=== PATIENT | female | born 1940 | race Caucasian/White ===

== ENCOUNTER 2018-09-30 20:25 | Inpatient (IN) ==
[2018-09-30] MEDS ORDERED: MethylPREDNISolone Sod Succinate Inj 125 MG/2 ML Vial IV.PUSH ONE (20:43)
--- NOTE | 2018-09-30 20:54 | ED ---
HPI General Chief Complaint: Chest Pain Stated Complaint: Chest Pressure/Trouble Breathing x2Days Time Seen by Provider: 09/30/18 20:35 Source: patient Mode of arrival: ambulatory Limitations: no limitations History of Present Illness MD complaint: Reports chest pain STEMI Alert: No Onset (ago): day(s) (3) Duration: constant and progressively worsening Pain location: Reports substernal Severity scale (1-10): 9 Quality: Reports tightness Pain radiation: Reports none Relieving factors: nothing Exacerbating factors: nothing Context: Reports other Associated symptoms: Reports dyspnea, fever and other (Purulent sputum production) Treatments prior to arrival chest pain: Reports other (Tylenol, bronchodilator and 1 dose of Augmentin which she took today) Related Data Home Medications Medication Instructions Recorded Confirmed acetaminophen [Tylenol] 325 mg PO Q6H PRN 09/30/18 09/30/18 amoxicillin-pot clavulanate 1 tab PO BID 09/30/18 09/30/18 budesonide-formoterol [Symbicort] 2 puff INHALATION BID 09/30/18 09/30/18 chlorthalidone 50 mg PO DAILY 09/30/18 09/30/18 levothyroxine [Synthroid] 112 mcg PO DAILY 09/30/18 09/30/18 sennosides [Senokot] 8.6 mg PO BID PRN 09/30/18 09/30/18 terbutaline 0.5 mg INHALATION Q4-6H PRN 09/30/18 09/30/18 Allergies Allergy/AdvReac Type Severity Reaction Status Date / Time aspirin Allergy Difficulty Verified 09/30/18 21:10 Breathing morphine Allergy Anaphylaxis Verified 09/30/18 21:10 petrolatum,white Allergy Difficulty Verified 09/30/18 21:10 [From Petroleum Jelly] Breathing Sulfa (Sulfonamide Allergy Rash Verified 09/30/18 20:43 Antibiotics) Review of Systems ROS: all other systems reviewed are negative [facility] Medical History Medical History Asthma (Acute) History of intestinal obstruction (Acute) Hx of thyroid cancer (Acute) Low blood pressure (Acute) Surgical History Surgical History Hx of appendectomy (Acute) Hx of tonsillectomy (Acute) Social History Social History Substance History: No History of Abuse Second Hand Smoke Exposure: No Smoking Status: Never smoker How Often Do You Have a Drink Containing Alcohol: Never Recent Travel in [facility] within the Last 8 Weeks: No Recent Out of Country Travel within the Last 8 Weeks: Yes Exam Const General: cooperative, healthy appearing and other (Obvious difficulty breathing) Orientation: alert, awake and oriented x3 HENMT Head: normal to inspection, normocephalic and atraumatic Eyes General: appearance normal, both eyes and all related structures Conjunctivae: conjunctivae normal Sclera: sclerae normal EOM: EOM intact bilaterally Neck Neck: normal visual inspection and full ROM Chest Chest: normal inspection of the chest Resp Effort & Inspection: cough, labored and prolonged expiratory phase Auscultation: wheezes Cardio Rate: regular rate Rhythm: regular rhythm Heart Sounds: S1 normal and S2 normal GI Inspection: normal to inspection Palpation: soft Back/Spine/Pelvis Cervical Spine: cervical ROM normal Thoracic/Lumbar Spine: thoraco-lumbar ROM normal Skin General: no rashes or lesions noted, turgor normal and dry skin Neuro General: alert, awake, oriented x3, moves all extremities and CN's II-XI intact bilaterally Extrem General: normal to inspection, full ROM and no pedal edema Psych Appearance: grossly normal Mental Status: mental status grossly normal Speech and Movement: speech and movement normal Mood: congruent mood Affect: normal affect Attitude: cooperative Thought Process: normal Thought Content: normal Judgment: judgment good Course Initial Documented Vital Signs Temperature 98.3 F 09/30/18 20:44 Pulse Rate 80 09/30/18 20:44 Respiratory Rate 18 09/30/18 20:44 Blood Pressure 138/76 09/30/18 20:44 Pulse Oximetry 97 09/30/18 20:44 Last Documented Vital Signs Temperature 98.3 F 09/30/18 20:44 Pulse Rate 101 H 09/30/18 22:18 Respiratory Rate 18 09/30/18 22:18 Blood Pressure 129/64 09/30/18 22:18 Pulse Oximetry 97 09/30/18 22:18 Medical Decision Making MDM Narrative Medical decision making narrative: This is a patient from [place] who lives here in the winter who has a history of asthma who presents to us with increasing dyspnea and chest discomfort over the last 3 days. She has had a fever and purulent sputum production. Her physician in [place] gives her a prescription for Augmentin to bring with her when she comes to the [facility]. She started the Augmentin this evening. She has also used her usual MDI. On exam, she is obviously having some difficulty breathing. Her lungs are tight with diffuse expiratory wheezing. I suspect that her symptoms are respiratory rather than cardiac related. Following 3 nebulizer treatments, her lungs are clear. However, the patient reports continued significant difficulty breathing. She also continues to have some chest discomfort. Admission may be difficult since she is [place]. I have ordered the remaining troponins and EKGs. Medical Screen Exam Complete: Yes Emergency Medical Condition: Yes Differential Diagnosis Differential Diagnosis: Differential diagnosis of dyspnea includes but is not limited to congestive heart failure, pneumonia, wheezing, pneumothorax, pulmonary embolism Lab Data Lab results reviewed: Yes I reviewed the patient's lab results. Result diagrams: 09/30/18 21:18 09/30/18 21:18 Lab Results 09/30/18 09/30/18 Range/Units 21:18 21:18 CBC w Diff Slide review pending WBC 7.2 (4.0-11.0) th/mm3 RBC 4.06 (4.00-5.30) mil/mm3 Hgb 12.5 (11.6-15.3) gm/dL Hct 37.1 (35.0-46.0) % MCV 91.2 (80.0-100.0) fL MCH 30.7 (27.0-34.0) pg MCHC 33.7 (32.0-36.0) % RDW 12.8 (11.6-17.2) % Plt Count 226 (150-450) th/mm3 MPV 8.7 (7.0-11.0) fL WBC Differential Manual diff final Seg Neuts % (Manual) 80 H (16-70) % Lymphocytes % (Manual) 17 (9-44) % Monocytes % (Manual) 3 (0-8) % Abs Neuts (Manual) 5.8 (1.8-7.7) th/mm3 Differential Comment . Platelet Estimate Normal (Normal) Platelet Morphology Normal (Normal) RBC Morphology Normal (Normal) Sodium 129 L (136-145) meq/L Potassium 3.1 L (3.5-5.1) meq/L Chloride 92 L (98-107) meq/L Carbon Dioxide 26.3 (21.0-32.0) meq/L Anion Gap 11 (5-15) meq/L BUN 10 (7-18) mg/dL Creatinine 0.58 (0.50-1.00) mg/dL Estimated GFR Greater than 89 (>89) mL/min Random Glucose 109 H (74-106) mg/dL Calcium 8.8 (8.5-10.1) mg/dL Total Bilirubin 0.5 (0.2-1.0) mg/dL AST 19 (15-37) U/L ALT 15 (10-53) U/L Alkaline Phosphatase 57 (45-117) U/L Troponin I Less than 0.02 L (0.02-0.05) ng/mL Total Protein 6.9 (6.4-8.2) g/dL Albumin 3.5 (3.4-5.0) g/dL Imaging Data Radiologist's impression: Chest X-Ray 09/30/18 20:43 CONCLUSION: 1. Negative portable chest. ECG Data EKG Prior to Arrival: No Attestation: I personally reviewed and interpreted this ECG as follows: (EKG shows a sinus rhythm with no acute STT wave changes.) Discharge Plan Discharge Disposition Patient Disposition: ED Admit(ED Internal Use Only) Discharge Order Discharge Orders: ED Use Only Admit Order (Routine); Ordered 09/30/18 Ordered By: Marguerite Mathis Discharge Details Diagnosis: Atypical chest pain, Asthma with acute exacerbation, Hyponatremia, Hypokalemia Physicians Team ED Provider: Marguerite Mathis Primary Care Provider: Primary Care JulianiJocelyn Rxs /Orders / Referrals /Forms Prescriptions: No Action sennosides [Senokot] 8.6 mg Tablet 8.6 mg PO BID PRN (Reason: Constipation) RF: 0 acetaminophen [Tylenol] 325 mg Tablet 325 mg PO Q6H PRN (Reason: Acute Pain) RF: 0 chlorthalidone 50 mg Tablet 50 mg PO DAILY RF: 0 levothyroxine [Synthroid] 112 mcg Tablet 112 mcg PO DAILY RF: 0 amoxicillin-pot clavulanate 875-125 mg Tablet 1 tab PO BID RF: 0 terbutaline 1 mg/mL Solution 0.5 mg INHALATION Q4-6H PRN (Reason: Bronchodilation) RF: 0 budesonide-formoterol [Symbicort] 160-4.5 mcg/actuation Hfa Aerosol Inhaler 2 puff INHALATION BID RF: 0 Discharge Instructions Patient Printed Instructions: Chest Pain (ED) Status ED Status: Pending Admission
--- NOTE | 2018-09-30 20:58 | XR ---
EXAM DATE: 09/30/2018 8:55 PM EST AGE/SEX: 78 years / Female INDICATIONS: Cough, chest pressure, vomiting and shortness of breath. CLINICAL DATA: This is the patient's initial encounter. Patient reports that signs and symptoms have been present for 3 days and indicates a pain score of 2/10. MEDICAL/SURGICAL HISTORY: None. . Thyroid surgery. COMPARISON: No prior exams available for comparison. FINDINGS: No significant focal pleural or parenchymal opacities. The cardiomediastinal contours are unremarkabl e. Osseous structures are intact. CONCLUSION: 1. Negative portable chest. Electronically signed by: Miguelangel Irving MD Board Certified Radiologist 09/30/2018 8:57 PM [facility] T
[2018-09-30 21:33] LABS: Hematocrit 37.1 % (35.0-46.0); Hemoglobin 12.5 gm/dL (11.6-15.3); Mean Corpuscular HGB Conc 33.7 % (32.0-36.0); Mean Corpuscular Hemoglobin 30.7 pg (27.0-34.0); Mean Corpuscular Volume 91.2 fL (80.0-100.0); Mean Platelet Volume 8.7 fL (7.0-11.0); Platelet Count 226 th/mm3 (150-450); Red Blood Count 4.06 mil/mm3 (4.00-5.30); Red Cell Distribution Width 12.8 % (11.6-17.2); White Blood Count 7.2 th/mm3 (4.0-11.0)
[2018-09-30 21:42] LABS: Chloride 92 meq/L (98-107); Potassium 3.1 meq/L (3.5-5.1); Sodium 129 meq/L (136-145)
[2018-09-30 21:45] LABS: Calcium 8.8 mg/dL (8.5-10.1)
[2018-09-30 21:46] LABS: Albumin 3.5 g/dL (3.4-5.0); Anion Gap 11 meq/L (5-15); Blood Urea Nitrogen 10 mg/dL (7-18); Carbon Dioxide 26.3 meq/L (21.0-32.0); Glucose,Random 109 mg/dL (74-106)
[2018-09-30 21:49] LABS: Alanine Aminotransferase 15 U/L (10-53); Aspartate Aminotransferase 19 U/L (15-37); Glomerular Filtration Rate Greater Than 89 mL/min (>89)
[2018-09-30 21:50] LABS: Total Protein 6.9 g/dL (6.4-8.2)
[2018-09-30 21:52] LABS: Alkaline Phosphatase 57 U/L (45-117)
[2018-09-30 21:53] LABS: Lymphocytes 17 % (9-44); Monocytes 3 % (0-8); Platelet Estimate Normal (Normal); Platelet Morphology Normal (Normal); RBC Morphology Normal (Normal)
[2018-09-30] MEDS ORDERED: Acetaminophen 325 MG Tablet PO PRN (22:58)
[2018-09-30] MEDS ORDERED: Bisacodyl 10 MG Supp RECTAL PRN (22:58)
[2018-09-30] MEDS: Heparin - SQ 10,000 UNITS/ML Vial SQ SCH (23:38)
[2018-09-30] MEDS: Sod Chloride 0.9% Inj 1,000 ML IV.CONT SCH (23:39)
[2018-10-01 04:02] LABS: Creatine Kinase 103 U/L (26-192)
[2018-10-01 06:45] LABS: Baso % (Auto) 0.7 % (0.0-2.0); Eos % (Auto) 0.1 % (0.0-4.0); Hematocrit 35.5 % (35.0-46.0); Hemoglobin 11.9 gm/dL (11.6-15.3); Lymph # (Auto) 0.4 th/mm3 (1.0-4.8); Lymph % (Auto) 6.2 % (9.0-44.0); Mean Corpuscular HGB Conc 33.7 % (32.0-36.0); Mean Corpuscular Hemoglobin 31.2 pg (27.0-34.0); Mean Corpuscular Volume 92.7 fL (80.0-100.0); Mean Platelet Volume 9.4 fL (7.0-11.0); Mono % (Auto) 0.5 % (0.0-8.0); Neut # (Auto) 5.7 th/mm3 (1.8-7.7); Neut % (Auto) 92.5 % (16.0-70.0); Platelet Count 212 th/mm3 (150-450); Red Blood Count 3.83 mil/mm3 (4.00-5.30); Red Cell Distribution Width 13.3 % (11.6-17.2); White Blood Count 6.1 th/mm3 (4.0-11.0)
[2018-10-01 06:56] LABS: Chloride 96 meq/L (98-107); Potassium 3.3 meq/L (3.5-5.1); Sodium 133 meq/L (136-145)
[2018-10-01 07:00] LABS: Anion Gap 11 meq/L (5-15); Blood Urea Nitrogen 9 mg/dL (7-18); Calcium 8.2 mg/dL (8.5-10.1); Glucose,Random 170 mg/dL (74-106)
[2018-10-01 07:04] LABS: Glomerular Filtration Rate Greater Than 89 mL/min (>89)
[2018-10-01 07:18] LABS: Creatine Kinase 73 U/L (26-192)
[2018-10-01] MEDS: Senna/Docusate Sodium 8.6/50 MG Tablet PO SCH ×2 (08:47→21:04)
[2018-10-01] MEDS: Levothyroxine 112 MCG Tablet PO SCH (08:47)
[2018-10-01] MEDS ORDERED: CHLORTHALIDONE 50 MG PO SCH (09:00)
[2018-10-01] MEDS: Sod Chloride 0.9% Inj 1,000 ML IV.CONT SCH ×2 (09:45→18:30)
[2018-10-01] MEDS: MethylPREDNISolone Sod Succinate Inj 40 MG/ML Vial IV.PUSH SCH ×3 (09:46→22:20)
[2018-10-01] MEDS: Budesonide-Formoterol 160/4.5 MCG 6 GM Inhaler INH SCH ×3 (09:46→21:06)
[2018-10-01] MEDS: Heparin - SQ 10,000 UNITS/ML Vial SQ SCH ×2 (09:59→22:20)
--- NOTE | 2018-10-01 10:40 | P.HP ---
History of Present Illness Primary Care Physician: No Primary Care Physician Chief Complaint: Worsening shortness of breath and chest pain History of Present Illness: This is a 78-year-old female patient with a known medical history of hypothyroidism who presented to the ED with worsening shortness of breath as well as associated chest pain times 2 days. Patient is from [place], states she arrived here late August and since that time actually went on a cruise on September 20. She states she got home from the cruise and felt overall fatigued and tired, she developed a productive cough with yellow colored sputum last evening and subjective fevers. Patient did take described Augmentin last evening. Also complains that she has some associated shortness of breath with chest pain. Chest posterior is midsternal, is pressure-like and occurs with the coughing. Patient denies any coronary artery disease history, states that she underwent a cardiac stress test in the . At that time she was advised to control her asthma so that there will be no effect on her heart. 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 Patient denies any chills, abdominal pain, nausea, vomiting, diarrhea or dysuria. Patient reassessed, she is extremely sensitive to perfumes or lotions, states that possibly being on the cruise exacerbated her asthma. She does feel improved overnight. Continue on antibiotics, IV steroids. - Diagnosis (1) Atypical chest pain (2) Asthma with acute exacerbation Review of Systems All other systems reviewed negative except as stated in HPI PMFSH - History History Provided By: Patient - Medical History Medical History: Medical History (Last Reviewed 10/01/18 @ 11:02 by Shanelle Sorto) Asthma History of intestinal obstruction Hx of thyroid cancer Low blood pressure - Surgical History Surgical History: Surgical History (Last Reviewed 10/01/18 @ 10:33 by Shanelle Sorto) Hx of appendectomy Hx of tonsillectomy - Family History Family History: Family History (Last Updated 10/01/18 @ 10:34 by Shanelle Sorto) Other Family history non-contributory - Social History I have reviewed the patient's Social History: Yes - Tobacco History Second Hand Smoke Exposure: No Tobacco Use In Past 30 Days: No Smoking Status: Never smoker - Alcohol History How Often Do You Have a Drink Containing Alcohol: Monthly or less - Substance Use History Substance History: No History of Abuse - Travel History Recent Travel in the [place] Within the Last 8 Weeks: No Recent Travel Out of the Country Within the Last 8 Weeks: Yes - Immunization History Tetanus Immunization: Unsure Medications and Allergies Active Medications: Active Medications Acetaminophen (Tylenol) 650 mg PO Q4H PRN PRN Reason: Temp > 100.4 Last Admin: 10/01/18 08:47 Dose: 650 mg Al Hydroxide/Mg Hydroxide (Milk Of Magnesia Liq) 30 ml PO Q12H PRN PRN Reason: Mild Constipation Albuterol (Albuterol Neb (Prn)) 2.5 mg NEB Q2HR NEB PRN PRN Reason: sob/wheezing Bisacodyl (Dulcolax Supp) 10 mg RECTAL DAILY PRN PRN Reason: SEVERE CONSITIPATION Budesonide/Formoterol Fumarate (Symbicort 160/4.5 Mcg Inh) 2 puff INH BID [facility] Last Admin: 10/01/18 10:02 Dose: Not Given Heparin Sodium (Porcine) (Heparin Inj) 5,000 units SQ Q12H [facility] Last Admin: 10/01/18 09:59 Dose: 5,000 units Sodium Chloride (Ns Inj) 1,000 mls @ 100 mls/hr IV.CONT .Q10H [facility] Last Admin: 10/01/18 09:45 Dose: 100 mls/hr Lactulose (Lactulose Liq) 30 ml PO DAILY PRN PRN Reason: SEVERE CONSITIPATION Levothyroxine Sodium (Synthroid) 112 mcg PO DAILY@0600 [facility] Last Admin: 10/01/18 08:47 Dose: 112 mcg Methylprednisolone Sodium Succinate (Solumedrol Inj) 40 mg IV.PUSH Q8HR [facility] Last Admin: 10/01/18 09:46 Dose: 40 mg Ondansetron HCl (Zofran Inj) 4 mg IV.PUSH Q6H PRN PRN Reason: NAUSEA OR VOMITING Last Admin: 10/01/18 08:47 Dose: 4 mg Patient Own Med- (Chlorthalidone 50 Mg) 0 each PO DAILY [facility] Senna/Docusate Sodium (Usha-Colace) 1 tab PO BID [facility] Last Admin: 10/01/18 08:47 Dose: 1 tab Sennosides (Senokot) 17.2 mg PO Q12H PRN PRN Reason: Moderate Constipation Sodium Chloride (Ns Flush) 2 ml IV.FLUSH BID [facility] Last Admin: 10/01/18 09:44 Dose: Not Given Sodium Chloride (Ns Flush) 2 ml IV.FLUSH PRN PRN PRN Reason: FLUSH AFTER USING IV ACCESS Allergies Allergy/AdvReac Type Severity Reaction Status Date / Time aspirin Allergy Difficulty Verified 09/30/18 21:10 Breathing morphine Allergy Anaphylaxis Verified 09/30/18 21:10 petrolatum,white Allergy Difficulty Verified 09/30/18 21:10 [From Petroleum Jelly] Breathing Sulfa (Sulfonamide Allergy Rash Verified 09/30/18 20:43 Antibiotics) Home Medications Medication Instructions Recorded Confirmed Type acetaminophen [Tylenol] 325 mg PO Q6H PRN 09/30/18 09/30/18 History amoxicillin-pot clavulanate 1 tab PO BID 09/30/18 09/30/18 History budesonide-formoterol [Symbicort] 2 puff INHALATION BID 09/30/18 09/30/18 History chlorthalidone 50 mg PO DAILY 09/30/18 09/30/18 History levothyroxine [Synthroid] 112 mcg PO DAILY 09/30/18 09/30/18 History sennosides [Senokot] 8.6 mg PO BID PRN 09/30/18 09/30/18 History terbutaline 0.5 mg INHALATION Q4-6H PRN 09/30/18 09/30/18 History Exam Vital signs: Vital Signs 09/30/18 20:44 09/30/18 20:48 09/30/18 21:20 Temperature 98.3 F Pulse Rate 80 80 76 Respiratory Rate 18 20 Blood Pressure 138/76 Pulse Oximetry 97 97 97 09/30/18 21:37 09/30/18 21:50 09/30/18 22:18 Temperature Pulse Rate 81 84 101 H Respiratory Rate 20 20 18 Blood Pressure 129/64 Pulse Oximetry 97 09/30/18 23:34 10/01/18 00:00 10/01/18 00:38 Temperature 96.1 F L Pulse Rate 82 85 Respiratory Rate 16 20 18 Blood Pressure 100/55 L 101/53 L Pulse Oximetry 90 L 93 L 10/01/18 04:00 10/01/18 07:30 10/01/18 08:00 Temperature 96.9 F L 96.8 F L Pulse Rate 82 20 L Respiratory Rate 20 20 Blood Pressure 117/59 L 127/59 L Pulse Oximetry 90 L 93 L 92 L Intake & Output 09/30/18 10/01/18 10/01/18 18:59 06:59 18:59 Intake Total 220 / 220 780 / 780 Balance 220 / 220 780 / 780 Weight 69.7 kg Intake: IV 220 / 220 780 / 780 NS Inj 1,000 ML @ 100 mls/hr IV 220 / 220 780 / 780 .CONT .Q10H [facility] Rx#:[id number] Oral 0 / 0 Other: # Voids 1 Weight On Admission 69.7 kg Narrative: GENERAL: Well-developed, well-nourished patient in [facility]. SKIN: Warm and dry. No rash. HEAD: Normocephalic. Atraumatic. EYES: Pupils equal and round. No scleral icterus. No injection or drainage. ENT: No nasal bleeding or discharge. Mucous membranes pink and moist. NECK: Supple. Trachea midline. CARDIOVASCULAR: Regular rate and rhythm. S1, S2 noted. No murmur appreciated. RESPIRATORY: No accessory muscle use. Expiratory wheezing. Breath sounds equal bilaterally. GASTROINTESTINAL: Abdomen soft, non-tender, nondistended. Normoactive bowel sounds x4. MUSCULOSKELETAL: No obvious deformities. Extremities without clubbing, cyanosis , or edema. NEUROLOGICAL: Awake and alert. No obvious cranial nerve deficits. Motor grossly within normal limits. 5/5 muscle strength in bilateral upper and lower extremities. Normal speech. PSYCHIATRIC: Appropriate mood and affect; insight and judgment normal. Results - Labs CBC & Chem 7: 10/01/18 05:45 10/01/18 05:45 Labs: Laboratory Results - last 24 hr 09/30/18 09/30/18 10/01/18 21:18 21:18 00:04 CBC w Diff Slide review pending WBC 7.2 RBC 4.06 Hgb 12.5 Hct 37.1 MCV 91.2 MCH 30.7 MCHC 33.7 RDW 12.8 Plt Count 226 MPV 8.7 Neut % (Auto) Lymph % (Auto) Divide % (Auto) Eos % (Auto) Baso % (Auto) Neut # (Auto) Lymph # (Auto) Divide # (Auto) Eos # (Auto) Baso # (Auto) WBC Differential Manual diff final Seg Neuts % (Manual) 80 H Lymphocytes % (Manual) 17 Monocytes % (Manual) 3 Abs Neuts (Manual) 5.8 Differential Comment . Platelet Estimate Normal Platelet Morphology Normal RBC Morphology Normal Sodium 129 L Potassium 3.1 L Chloride 92 L Carbon Dioxide 26.3 Anion Gap 11 BUN 10 Creatinine 0.58 Estimated GFR Greater than 89 Random Glucose 109 H Calcium 8.8 Total Bilirubin 0.5 AST 19 ALT 15 Alkaline Phosphatase 57 Total Creatine Kinase Troponin I Less than 0.02 L Less than 0.02 L Total Protein 6.9 Albumin 3.5 10/01/18 10/01/18 10/01/18 03:30 05:45 05:45 CBC w Diff Auto diff final WBC 6.1 RBC 3.83 L Hgb 11.9 Hct 35.5 MCV 92.7 MCH 31.2 MCHC 33.7 RDW 13.3 Plt Count 212 MPV 9.4 Neut % (Auto) 92.5 H Lymph % (Auto) 6.2 L Divide % (Auto) 0.5 Eos % (Auto) 0.1 Baso % (Auto) 0.7 Neut # (Auto) 5.7 Lymph # (Auto) 0.4 L Divide # (Auto) 0.0 Eos # (Auto) 0.0 Baso # (Auto) 0.0 WBC Differential . Seg Neuts % (Manual) Lymphocytes % (Manual) Monocytes % (Manual) Abs Neuts (Manual) Differential Comment . Platelet Estimate Platelet Morphology RBC Morphology Sodium 133 L Potassium 3.3 L Chloride 96 L Carbon Dioxide 26.0 Anion Gap 11 BUN 9 Creatinine 0.63 Estimated GFR Greater than 89 Random Glucose 170 H Calcium 8.2 L Total Bilirubin AST ALT Alkaline Phosphatase Total Creatine Kinase 103 73 Troponin I Less than 0.02 L Less than 0.02 L Total Protein Albumin - Imaging Impressions Chest X-Ray 09/30/18 20:43 CONCLUSION: 1. Negative portable chest. Caprini VTE Risk Assessment Caprini VTE Risk Assessment: Moderate/High Risk (score >= 2) Caprini Risk Assessment Model: Point Value = 1 Point Value = 2 Point Value = 3 Point Value = 5 Age 41-60 Minor surgery BMI > 25 kg/m2 Swollen legs Varicose veins or History of unexplained or recurrent spontaneous Oral contraceptives or hormone replacement Sepsis (< 1 month) Serious lung disease, including pneumonia (< 1 month) Abnormal pulmonary function Acute myocardial infarction Congestive heart failure (< 1 month) History of inflammatory bowel disease Medical patient at bed rest Age 61-74 Arthroscopic surgery Major open surgery (> 45 min) Laparoscopic surgery (> 45 min) Malignancy Confined to bed (> 72 hours) Immobilizing plaster cast Central venous access Age >= 75 History of VTE Family history of VTE Factor V Leiden Prothrombin [id number] Lupus anticoagulant Anticardiolipin antibodies Elevated serum homocysteine Heparin-induced thrombocytopenia Other congenital or acquired thrombophilia Stroke (< 1 month) Elective arthroplasty Hip, pelvis, or leg fracture Acute spinal cord injury (< 1 month) Prophylaxis Regimen: Total Risk Factor Score Risk Level Prophylaxis Regimen 0-1 Low Early ambulation 2 Moderate Order ONE of the following: *Sequential Compression Device (SCD) *Heparin 5000 units SQ BID 3-4 Higher Order ONE of the following medications: *Heparin 5000 units SQ TID *Enoxaparin/Lovenox 40 mg SQ daily (WT < 150 kg, CrCl > 30 mL/min) *Enoxaparin/Lovenox 30 mg SQ daily (WT < 150 kg, CrCl > 10-29 mL/min) *Enoxaparin/Lovenox 30 mg SQ BID (WT < 150 kg, CrCl > 30 mL/min) AND/OR *Sequential Compression Device (SCD) 5 or more Highest Order ONE of the following medications: *Heparin 5000 units SQ TID (Preferred with Epidurals) *Enoxaparin/Lovenox 40 mg SQ daily (WT < 150 kg, CrCl > 30 mL/min) *Enoxaparin/Lovenox 30 mg SQ daily (WT < 150 kg, CrCl > 10-29 mL/min) *Enoxaparin/Lovenox 30 mg SQ BID (WT < 150 kg, CrCl > 30 mL/min) AND *Sequential Compression Device (SCD) Assessment and Plan - Assessment (1) Atypical chest pain Code(s): R07.89 - Other chest pain Status: Acute (2) Asthma with acute exacerbation Code(s): J45.901 - Unspecified asthma with (acute) exacerbation Status: Acute - Plan This is a 78-year-old female patient who presented to the ED with: Asthma and acute exacerbation Chest pain, atypical suspect secondary to above -Patient presents with a 2-day complaint of worsening shortness of breath along with chest pain. -Serial EKGs and serial troponins have been ordered for ruling out ACS purposes. Serial troponins flat. -EKG reviewed showing sinus rhythm without any ST changes. Will continue cardiac telemetry. Monitor for any arrhythmias. -ACS ruled out with troponins and EKGs. Will possibly perform a cardiac lexiscan in am if resp status improved. Monitor. -Chest x-ray reviewed showing no acute findings. -Continue on IV steroids. -Symbicort for wheezing. Continue duo nebs. -Continue Augmentin. -Supplemental O2 as needed, to keep sats >92%. -Supportive care. Acute hyponatremia -Sodium 129 on presentation. Improved to 133. -Monitor labs in a.m. Hypokalemia -Potassium 3.1 on presentation. Improved to 3.3. -Repletion as ordered. -Monitor BMP. Hypertension, chronic: Will continue home blood pressure medications. Monitor blood pressure trends. DVT prophylaxis: SCDs. Heparin. (2) Asthma with acute exacerbation Qualifiers: Asthma severity: moderate Asthma persistence: unspecified Qualified Code(s) : J45.901 - Unspecified asthma with (acute) exacerbation
--- NOTE | 2018-10-01 11:01 | P.PNIM ---
Physical Exam Vital signs: Vital Signs 09/30/18 20:44 09/30/18 20:48 09/30/18 21:20 Temperature 98.3 F Pulse Rate 80 80 76 Respiratory Rate 18 20 Blood Pressure 138/76 Pulse Oximetry 97 97 97 09/30/18 21:37 09/30/18 21:50 09/30/18 22:18 Temperature Pulse Rate 81 84 101 H Respiratory Rate 20 20 18 Blood Pressure 129/64 Pulse Oximetry 97 09/30/18 23:34 10/01/18 00:00 10/01/18 00:38 Temperature 96.1 F L Pulse Rate 82 85 Respiratory Rate 16 20 18 Blood Pressure 100/55 L 101/53 L Pulse Oximetry 90 L 93 L 10/01/18 04:00 10/01/18 07:30 10/01/18 08:00 Temperature 96.9 F L 96.8 F L Pulse Rate 82 20 L Respiratory Rate 20 20 Blood Pressure 117/59 L 127/59 L Pulse Oximetry 90 L 93 L 92 L Intake & Output 09/30/18 10/01/18 10/01/18 18:59 06:59 18:59 Intake Total 220 / 220 780 / 780 Balance 220 / 220 780 / 780 Weight 69.7 kg Intake: IV 220 / 220 780 / 780 NS Inj 1,000 ML @ 100 mls/hr IV 220 / 220 780 / 780 .CONT .Q10H QING Rx#:[id number] Oral 0 / 0 Other: # Voids 1 Weight On Admission 69.7 kg Narrative: GENERAL: Well-developed, well-nourished patient in [facility]. SKIN: Warm and dry. No rash. HEAD: Normocephalic. Atraumatic. EYES: Pupils equal and round. No scleral icterus. No injection or drainage. ENT: No nasal bleeding or discharge. Mucous membranes pink and moist. NECK: Supple. Trachea midline. CARDIOVASCULAR: Regular rate and rhythm. S1, S2 noted. No murmur appreciated. RESPIRATORY: No accessory muscle use. Expiratory wheezing throughout. Breath sounds equal bilaterally. GASTROINTESTINAL: Abdomen soft, non-tender, nondistended. Normoactive bowel sounds x4. MUSCULOSKELETAL: No obvious deformities. Extremities without clubbing, cyanosis , or edema. NEUROLOGICAL: Awake and alert. No obvious cranial nerve deficits. Motor grossly within normal limits. 5/5 muscle strength in bilateral upper and lower extremities. Normal speech. PSYCHIATRIC: Appropriate mood and affect; insight and judgment normal. Results - Labs CBC & Chem 7: 10/01/18 05:45 10/01/18 05:45 Laboratory Results - last 24 hr 09/30/18 09/30/18 10/01/18 21:18 21:18 00:04 CBC w Diff Slide review pending WBC 7.2 RBC 4.06 Hgb 12.5 Hct 37.1 MCV 91.2 MCH 30.7 MCHC 33.7 RDW 12.8 Plt Count 226 MPV 8.7 Neut % (Auto) Lymph % (Auto) Henry % (Auto) Eos % (Auto) Baso % (Auto) Neut # (Auto) Lymph # (Auto) Henry # (Auto) Eos # (Auto) Baso # (Auto) WBC Differential Manual diff final Seg Neuts % (Manual) 80 H Lymphocytes % (Manual) 17 Monocytes % (Manual) 3 Abs Neuts (Manual) 5.8 Differential Comment . Platelet Estimate Normal Platelet Morphology Normal RBC Morphology Normal Sodium 129 L Potassium 3.1 L Chloride 92 L Carbon Dioxide 26.3 Anion Gap 11 BUN 10 Creatinine 0.58 Estimated GFR Greater than 89 Random Glucose 109 H Calcium 8.8 Total Bilirubin 0.5 AST 19 ALT 15 Alkaline Phosphatase 57 Total Creatine Kinase Troponin I Less than 0.02 L Less than 0.02 L Total Protein 6.9 Albumin 3.5 10/01/18 10/01/18 10/01/18 03:30 05:45 05:45 CBC w Diff Auto diff final WBC 6.1 RBC 3.83 L Hgb 11.9 Hct 35.5 MCV 92.7 MCH 31.2 MCHC 33.7 RDW 13.3 Plt Count 212 MPV 9.4 Neut % (Auto) 92.5 H Lymph % (Auto) 6.2 L Henry % (Auto) 0.5 Eos % (Auto) 0.1 Baso % (Auto) 0.7 Neut # (Auto) 5.7 Lymph # (Auto) 0.4 L Henry # (Auto) 0.0 Eos # (Auto) 0.0 Baso # (Auto) 0.0 WBC Differential . Seg Neuts % (Manual) Lymphocytes % (Manual) Monocytes % (Manual) Abs Neuts (Manual) Differential Comment . Platelet Estimate Platelet Morphology RBC Morphology Sodium 133 L Potassium 3.3 L Chloride 96 L Carbon Dioxide 26.0 Anion Gap 11 BUN 9 Creatinine 0.63 Estimated GFR Greater than 89 Random Glucose 170 H Calcium 8.2 L Total Bilirubin AST ALT Alkaline Phosphatase Total Creatine Kinase 103 73 Troponin I Less than 0.02 L Less than 0.02 L Total Protein Albumin - Imaging Impressions Chest X-Ray 09/30/18 20:43 CONCLUSION: 1. Negative portable chest. Assessment and Plan - Assessment (1) Atypical chest pain Code(s): R07.89 - Other chest pain Status: Acute (2) Asthma with acute exacerbation Code(s): J45.901 - Unspecified asthma with (acute) exacerbation Status: Acute - Plan Hypothyroidism who presented to the ED with: Asthma and acute exacerbation Chest pain, atypical suspect secondary to above -Patient presents with a 2-day complaint of worsening shortness of breath along with chest pain. -Serial EKGs and serial troponins have been ordered for ruling out ACS purposes. Serial troponins flat. -EKG reviewed showing sinus rhythm without any ST changes. Will continue cardiac telemetry. Monitor for any arrhythmias. -ACS ruled out with troponins and EKGs. Will possibly perform a cardiac lexiscan in am if resp status improved. Monitor. -Chest x-ray reviewed showing no acute findings. -Continue on IV steroids. -Symbicort for wheezing. Continue duo nebs. -Continue Augmentin. -Supplemental O2 as needed, to keep sats >92%. -Supportive care. Acute hyponatremia -Sodium 129 on presentation. Improved to 133. -Monitor labs in a.m. Hypokalemia -Potassium 3.1 on presentation. Improved to 3.3. -Repletion as ordered. -Monitor BMP. DVT prophylaxis: SCDs. Heparin. (2) Asthma with acute exacerbation Qualifiers: Asthma severity: moderate Asthma persistence: unspecified Qualified Code(s) : J45.901 - Unspecified asthma with (acute) exacerbation
[2018-10-01] MEDS ORDERED: TERBUTALINE SULFATE INH PRN (13:42)
--- NOTE | 2018-10-01 18:22 | ECG ---
Date Performed: 10/01/2018 Time Performed: 02:54:58 PTAGE: 78 years EKG: Sinus rhythm ST DEVIATION AND MODERATE T-WAVE ABNORMALITY ABNORMAL ECG PREVIOUS TRACING : 10/01/2018 00.10 Since the previous tracing, no significant change noted DOCTOR: Cheryl Fisher Interpretating Date/Time 10/01/2018 18:21:53
--- NOTE | 2018-10-01 18:26 | ECG ---
Date Performed: 10/01/2018 Time Performed: 00:10:42 PTAGE: 78 years EKG: Sinus rhythm POSSIBLE LEFT ATRIAL ENLARGEMENT MINIMAL ST DEPRESSION BORDERLINE ECG PREVIOUS TRACING : 09/30/2018 20.31 Since the previous tracing, no significant change noted DOCTOR: Cheryl Fisher Interpretating Date/Time 10/01/2018 18:24:30
--- NOTE | 2018-10-01 18:38 | ECG ---
Date Performed: 09/30/2018 Time Performed: 20:31:15 PTAGE: 78 years EKG: Sinus rhythm NONSPECIFIC ST & T-WAVE ABNORMALITY BORDERLINE ECG NO PREVIOUS TRACING DOCTOR: Cheryl Fisher Interpretating Date/Time 10/01/2018 18:36:59
[2018-10-01] MEDS: Amoxicillin/Clavulanate 875/125 MG Tablet PO SCH (21:04)
[2018-10-01] MEDS: FORMOTEROL INH SCH (22:20)
[2018-10-01] MEDS: BUDESONIDE INH SCH (22:20)
[2018-10-02] MEDS: Sod Chloride 0.9% Inj 1,000 ML IV.CONT SCH ×2 (04:38→16:32)
[2018-10-02] MEDS: Levothyroxine 112 MCG Tablet PO SCH (06:31)
[2018-10-02] MEDS: MethylPREDNISolone Sod Succinate Inj 40 MG/ML Vial IV.PUSH SCH (06:31)
[2018-10-02] MEDS: Senna/Docusate Sodium 8.6/50 MG Tablet PO SCH ×2 (08:01→20:50)
[2018-10-02] MEDS: Amoxicillin/Clavulanate 875/125 MG Tablet PO SCH ×2 (08:01→20:49)
[2018-10-02] MEDS: BUDESONIDE INH SCH ×2 (08:02→20:49)
[2018-10-02] MEDS: FORMOTEROL INH SCH ×2 (08:02→20:49)
[2018-10-02] MEDS: Budesonide-Formoterol 160/4.5 MCG 6 GM Inhaler INH SCH ×2 (08:03→20:50)
--- NOTE | 2018-10-02 09:00 | P.PNIM ---
Physical Exam Vital signs: Vital Signs 10/01/18 12:00 10/01/18 16:00 10/01/18 20:00 Temperature 96.9 F L 96.8 F L 97.0 F L Pulse Rate 87 89 92 H Respiratory Rate 20 20 18 Blood Pressure 126/67 149/72 H 123/69 Pulse Oximetry 94 L 93 L 97 10/01/18 20:08 10/01/18 23:29 10/02/18 00:00 Temperature 98.8 F Pulse Rate 87 72 Respiratory Rate 18 Blood Pressure 109/59 L Pulse Oximetry 93 L 96 10/02/18 04:00 10/02/18 04:03 Temperature 96.7 F L Pulse Rate 66 73 Respiratory Rate 18 Blood Pressure 100/52 L Pulse Oximetry 90 L Intake & Output 10/01/18 10/02/18 10/02/18 18:59 06:59 18:59 Intake Total 2590 / 2590 1000 / 1000 Output Total 1000 / 1000 Balance 2590 / 2590 0 / 0 Weight 70.2 kg Intake: IV 1780 / 1780 1000 / 1000 NS Inj 1,000 ML @ 100 mls/hr IV 1780 / 1780 1000 / 1000 .CONT .Q10H QING Rx#:[id number] Oral 810 / 810 0 / 0 Output: Urine 1000 / 1000 Other: # Voids 3 Date of Last Bowel Movement 09/28/18 09/27/18 Results - Labs CBC & Chem 7: 10/01/18 05:45 10/01/18 05:45 Laboratory Results - last 24 hr 10/01/18 10/01/18 10/01/18 05:45 05:45 17:25 D-Dimer Quant (PE/DVT) 0.29 Magnesium 2.0 B-Natriuretic Peptide 78 Assessment and Plan - Assessment (1) Atypical chest pain Code(s): R07.89 - Other chest pain Status: Acute (2) Asthma with acute exacerbation Code(s): J45.901 - Unspecified asthma with (acute) exacerbation Status: Acute (2) Asthma with acute exacerbation Qualifiers: Asthma severity: moderate Asthma persistence: unspecified Qualified Code(s) : J45.901 - Unspecified asthma with (acute) exacerbation
--- NOTE | 2018-10-02 09:23 | P.DS ---
Date of admission: 09/30/18 22:56 Primary care physician: No Primary Care Physician Brief History from admission: This is a 78-year-old female patient with a known medical history of hypothyroidism who presented to the ED with worsening shortness of breath as well as associated chest pain times 2 days. Patient is from [place], states she arrived here late August and since that time actually went on a cruise on September 20-. She states she got home from the cruise and felt overall fatigued and tired, she developed a productive cough with yellow colored sputum last evening and subjective fevers. Patient did take described Augmentin last evening. Also complains that she has some associated shortness of breath with chest pain. Chest posterior is midsternal, is pressure-like and occurs with the coughing. Patient denies any coronary artery disease history, states that she underwent a cardiac stress test in the . At that time she was advised to control her asthma so that there will be no effect on her heart. Since that time she has not followed with a gps navigation installer nor had another stress test performed. Patient denies any chills, abdominal pain, nausea, vomiting, diarrhea or dysuria. Patient reassessed, she is extremely sensitive to perfumes or lotions, states that possibly being on the cruise exacerbated her asthma. She does feel improved overnight. Continue on antibiotics, IV steroids. DS: Diagnosis - Discharge Diagnosis (1) Atypical chest pain Status: Acute (2) Asthma with acute exacerbation Status: Acute DS: Medications - Discharge Medications Prescriptions: amoxicillin-pot clavulanate 1 tab PO BID 7 Days #14 tab prednisone 20 mg PO DAILY 4 Days #4 tab DS: Summary Hospital Course: This is a 78-year-old female patient who presented to the ED with: Asthma and acute exacerbation Chest pain, atypical suspect secondary to above -Patient presents with a 2-day complaint of worsening shortness of breath along with chest pain. -Serial EKGs and serial troponins have been ordered for ruling out ACS purposes. Serial troponins flat. -EKG reviewed showing sinus rhythm without any ST changes. Will continue cardiac telemetry. Monitor for any arrhythmias. -ACS ruled out with troponins and EKGs. Will possibly perform a cardiac lexiscan in am if resp status improved. Monitor. -Chest x-ray reviewed showing no acute findings. -Continue on IV steroids. -Symbicort for wheezing. Continue duo nebs. -Continue Augmentin. -Supplemental O2 as needed, to keep sats >92%. -Supportive care. Acute hyponatremia -Sodium 129 on presentation. Improved to 133. -Monitor labs in a.m. Hypokalemia -Potassium 3.1 on presentation. Improved to 3.3. -Repletion as ordered. -Monitor BMP. Hypertension, chronic: Will continue home blood pressure medications. Monitor blood pressure trends. DVT prophylaxis: SCDs. Heparin. - Time Spent with Patient Total time spent providing and/or coordinating discharge services: Greater than 30 minutes - Quality: VTE Deep Vein Thrombosis/Pulmonary Embolism Present on Admission: No Exam Vital signs: Vital Signs 10/01/18 12:00 10/01/18 16:00 10/01/18 20:00 Temperature 96.9 F L 96.8 F L 97.0 F L Pulse Rate 87 89 92 H Respiratory Rate 20 20 18 Blood Pressure 126/67 149/72 H 123/69 Pulse Oximetry 94 L 93 L 97 10/01/18 20:08 10/01/18 23:29 10/02/18 00:00 Temperature 98.8 F Pulse Rate 87 72 Respiratory Rate 18 Blood Pressure 109/59 L Pulse Oximetry 93 L 96 10/02/18 04:00 10/02/18 04:03 Temperature 96.7 F L Pulse Rate 66 73 Respiratory Rate 18 Blood Pressure 100/52 L Pulse Oximetry 90 L Intake & Output 10/01/18 10/02/18 10/02/18 18:59 06:59 18:59 Intake Total 2590 / 2590 1000 / 1000 Output Total 1000 / 1000 Balance 2590 / 2590 0 / 0 Weight 70.2 kg Intake: IV 1780 / 1780 1000 / 1000 NS Inj 1,000 ML @ 100 mls/hr IV 1780 / 1780 1000 / 1000 .CONT .Q10H QING Rx#:[id number] Oral 810 / 810 0 / 0 Output: Urine 1000 / 1000 Other: # Voids 3 Date of Last Bowel Movement 09/28/18 09/27/18 Narrative: GENERAL: Well-developed, well-nourished patient in [facility]. SKIN: Warm and dry. No rash. HEAD: Normocephalic. Atraumatic. EYES: Pupils equal and round. No scleral icterus. No injection or drainage. ENT: No nasal bleeding or discharge. Mucous membranes pink and moist. NECK: Supple. Trachea midline. CARDIOVASCULAR: Regular rate and rhythm. S1, S2 noted. No murmur appreciated. RESPIRATORY: No accessory muscle use. Expiratory wheezing to bilateral lower posterior lobes. Breath sounds equal bilaterally. GASTROINTESTINAL: Abdomen soft, non-tender, nondistended. Normoactive bowel sounds x4. MUSCULOSKELETAL: No obvious deformities. Extremities without clubbing, cyanosis , or edema. NEUROLOGICAL: Awake and alert. No obvious cranial nerve deficits. Motor grossly within normal limits. 5/5 muscle strength in bilateral upper and lower extremities. Normal speech. PSYCHIATRIC: Appropriate mood and affect; insight and judgment normal. Results Procedures completed during hospitalization: See above. Labs on day of discharge: Labs from last 24 hours 10/01/18 10/01/18 10/01/18 17:25 05:45 05:45 D-Dimer Quant (PE/DVT) 0.29 Magnesium 2.0 B-Natriuretic Peptide 78 - Impressions ITS Impressions Chest X-Ray 09/30/18 20:43 CONCLUSION: 1. Negative portable chest. Discharge Plan - Discharge Condition Condition: Stable - Discharge Order Discharge Orders: Discharge Order (Routine); Ordered 10/02/18 Ordered By: Shanelle Sorto - Discharge Details Anticipated Discharge Date: 10/02/18 Discharge Comment: DC to [facility] via air transfer. - Physicians Team Primary Care Provider: Primary Care Physici,No Attending Provider: Víctor Teague
[2018-10-02 11:18] LABS: Calcium 8.7 mg/dL (8.5-10.1); Carbon Dioxide 25.2 meq/L (21.0-32.0); Potassium 3.8 meq/L (3.5-5.1)
[2018-10-02] MEDS: predniSONE 20 MG Tablet PO SCH ×2 (11:57→20:49)
[2018-10-02] MEDS: Heparin - SQ 10,000 UNITS/ML Vial SQ SCH ×2 (11:57→22:50)
--- NOTE | 2018-10-02 13:55 | P.PNIM ---
Subjective Interval history: Follow-up asthma exacerbation chest pain. Patient seen and examined sitting up in bed comfortably no apparent distress. Breathing comfortably on room air. Wheezing has completely improved. No chest pain overnight. Spoke to son who is at bedside as well as patient, they have been speaking with their MD up in [place] as well as the insurance company, will undergo a cardiac stress test tomorrow. Physical Exam Vital signs: Vital Signs 10/01/18 16:00 10/01/18 20:00 10/01/18 20:08 Temperature 96.8 F L 97.0 F L Pulse Rate 89 92 H 87 Respiratory Rate 20 18 Blood Pressure 149/72 H 123/69 Pulse Oximetry 93 L 97 10/01/18 23:29 10/02/18 00:00 10/02/18 04:00 Temperature 98.8 F 96.7 F L Pulse Rate 72 66 Respiratory Rate 18 18 Blood Pressure 109/59 L 100/52 L Pulse Oximetry 93 L 96 90 L 10/02/18 04:03 10/02/18 08:00 Temperature 96 F L Pulse Rate 73 76 Respiratory Rate 20 Blood Pressure 125/59 L Pulse Oximetry 92 L Intake & Output 10/01/18 10/02/18 10/02/18 18:59 06:59 18:59 Intake Total 2590 / 2590 1000 / 1000 Output Total 1000 / 1000 Balance 2590 / 2590 0 / 0 Weight 70.2 kg Intake: IV 1780 / 1780 1000 / 1000 NS Inj 1,000 ML @ 100 mls/hr IV 1780 / 1780 1000 / 1000 .CONT .Q10H QING Rx#:[id number] Oral 810 / 810 0 / 0 Output: Urine 1000 / 1000 Other: # Voids 3 Date of Last Bowel Movement 09/28/18 09/27/18 Narrative: GENERAL: Well-developed, well-nourished patient in [facility]. SKIN: Warm and dry. No rash. HEAD: Normocephalic. Atraumatic. EYES: Pupils equal and round. No scleral icterus. No injection or drainage. ENT: No nasal bleeding or discharge. Mucous membranes pink and moist. NECK: Supple. Trachea midline. CARDIOVASCULAR: Regular rate and rhythm. S1, S2 noted. No murmur appreciated. RESPIRATORY: No accessory muscle use. cta. Breath sounds equal bilaterally. GASTROINTESTINAL: Abdomen soft, non-tender, nondistended. Normoactive bowel sounds x4. MUSCULOSKELETAL: No obvious deformities. Extremities without clubbing, cyanosis , or edema. NEUROLOGICAL: Awake and alert. No obvious cranial nerve deficits. Motor grossly within normal limits. 5/5 muscle strength in bilateral upper and lower extremities. Normal speech. PSYCHIATRIC: Appropriate mood and affect; insight and judgment normal. Results - Labs CBC & Chem 7: 10/01/18 05:45 10/02/18 10:07 Laboratory Results - last 24 hr 10/01/18 10/01/18 10/01/18 05:45 05:45 17:25 D-Dimer Quant (PE/DVT) 0.29 Sodium Potassium Chloride Carbon Dioxide Anion Gap BUN Creatinine Estimated GFR Random Glucose Calcium Magnesium 2.0 B-Natriuretic Peptide 78 10/02/18 10:07 D-Dimer Quant (PE/DVT) Sodium 139 Potassium 3.8 Chloride 105 D Carbon Dioxide 25.2 Anion Gap 9 BUN 15 Creatinine 0.73 Estimated GFR 78 L Random Glucose 161 H Calcium 8.7 Magnesium B-Natriuretic Peptide - Procedures See above. Assessment and Plan - Assessment (1) Atypical chest pain Code(s): R07.89 - Other chest pain Status: Acute (2) Asthma with acute exacerbation Code(s): J45.901 - Unspecified asthma with (acute) exacerbation Status: Acute - Plan This is a 78-year-old female patient who presented to the ED with: Asthma and acute exacerbation. Improved. Chest pain, atypical suspect secondary to above. Resolved. -Patient presents with a 2-day complaint of worsening shortness of breath along with chest pain. -Serial EKGs and serial troponins have been ordered for ruling out ACS purposes. Serial troponins flat. -EKG reviewed showing sinus rhythm without any ST changes. Will continue cardiac telemetry. Monitor for any arrhythmias. -ACS ruled out with troponins and EKGs. Will possibly perform a cardiac lexiscan in am. -Chest x-ray reviewed showing no acute findings. -Continue on IV steroids. -Symbicort for wheezing. Continue duo nebs. -Continue Augmentin. -Supplemental O2 as needed, to keep sats >92%. -Supportive care. Acute hyponatremia. Improved. -Sodium 129 on presentation. Improved to 139. -Monitor labs in a.m. Hypokalemia. Improved. -Potassium 3.1 on presentation. Improved to 3.8. -Repletion as ordered. -Monitor BMP. Hypertension, chronic: Will continue home blood pressure medications. Monitor blood pressure trends. DVT prophylaxis: SCDs. Heparin. Discharge Planning: Will undergo a cardiac stress in am. Further hospitalization will depend on results. (2) Asthma with acute exacerbation Qualifiers: Asthma severity: moderate Asthma persistence: unspecified Qualified Code(s) : J45.901 - Unspecified asthma with (acute) exacerbation
[2018-10-03] MEDS: Sod Chloride 0.9% Inj 1,000 ML IV.CONT SCH ×2 (02:55→13:04)
[2018-10-03] MEDS: Levothyroxine 112 MCG Tablet PO SCH (06:17)
[2018-10-03] MEDS: predniSONE 20 MG Tablet PO SCH (08:17)
[2018-10-03] MEDS: Amoxicillin/Clavulanate 875/125 MG Tablet PO SCH (08:17)
[2018-10-03] MEDS: FORMOTEROL INH SCH (08:18)
[2018-10-03] MEDS: BUDESONIDE INH SCH (08:18)
[2018-10-03] MEDS ORDERED: Regadenoson Inj 0.4 MG/5 ML Syringe IV.PUSH ONE (08:57)
--- NOTE | 2018-10-03 10:09 | NM ---
EXAM DATE: 10/03/2018 10:03 AM EST AGE/SEX: 78 years / Female INDICATIONS:Angina. . Chest pain. CLINICAL DATA: This is the patient's initial encounter. Patient reports that signs and symptoms have been present for 1 day and indicates a pain score of 3/10. MEDICAL/SURGICAL HISTORY: Asthma. Carcinoma, thyroid. Hypotensive, history of intestinal obstr uction. Appendectomy. Tonsillectomy. COMPARISON: No prior exams available for comparison. DOSE: 8.6 mCi Tc 99m Myoview at rest 26.3 mCi [id number] at stress 0.4 mg Lexiscan STRESS SYMPTOMS: Chest tightness. EJECTION FRACTION: >70 % TECHNIQUE: The patient underwent pharmacologic stress with infusion of prescribed dose. Continuous ECG tracing was monitored during stress. Gated SPECT imaging was performed after stress and conventi onal SPECT imaging was performed at rest. The examination was performed on a SPECT/CT scanner, both attenuation and non-corrected datasets were reviewed. FINDINGS: Distribution: The maximum perfused segment at stress is in the lateral wall. Perfusion Study: The pattern of perfusion at stress is within normal limits. Gated Study: There are intact wall motion and wall thickening without hypokinetic or dyskinetic segm ents. The ejection fraction is calculated at >70%. RISK CATEGORY: Low (<1% Annual Mortality Rate) CONCLUSION: 1. Negative examination. Electronically signed by: Davion Rowland MD Board Certified Radiologist 10/03/2018 10:07 AM EST
[2018-10-03] MEDS: Budesonide-Formoterol 160/4.5 MCG 6 GM Inhaler INH SCH (11:59)
[2018-10-03] MEDS: Senna/Docusate Sodium 8.6/50 MG Tablet PO SCH (12:00)
[2018-10-03] MEDS: Heparin - SQ 10,000 UNITS/ML Vial SQ SCH (12:10)
--- NOTE | 2018-10-03 12:12 | P.PNIM ---
Subjective Interval history: Patient seen sitting up in bed after stress test. Son is at bedside. She reports that she is feeling much better. Still having some wheezing but not nearly as bad as before. No coughing. No chest pain. No significant shortness of breath. No nausea vomiting or diarrhea. No fever or chills. Physical Exam Vital signs: Last Vital Signs Temp 98.6 F 10/03/18 08:00 Pulse 76 10/03/18 10:34 Resp 16 10/03/18 10:34 BP 166/73 H 10/03/18 08:00 Pulse Ox 96 10/03/18 10:34 Intake & Output 10/01/18 10/02/18 10/03/18 10/04/18 06:59 06:59 06:59 06:59 Intake Total 220 / 220 3590 / 3590 2750 / 2750 240 / 240 Output Total 1000 / 1000 300 / 300 Balance 220 / 220 2590 / 2590 2750 / 2750 -60 / -60 Weight 69.7 kg 70.2 kg 70.4 kg Narrative: GENERAL: Well-developed, well-nourished patient in [facility]. SKIN: Warm and dry. No rash. CARDIOVASCULAR: Regular rate and rhythm. RESPIRATORY: No accessory muscle use. Expiratory wheezing to bilateral lower posterior lobes. Breath sounds equal bilaterally. GASTROINTESTINAL: Abdomen soft, non-tender, nondistended. Normoactive bowel sounds x4. MUSCULOSKELETAL: No obvious deformities. Extremities without clubbing, cyanosis , or edema. NEUROLOGICAL: Awake and alert. No obvious cranial nerve deficits. Motor grossly within normal limits. Normal speech. PSYCHIATRIC: Appropriate mood and affect; insight and judgment normal. Results Labs CBC & Chem 7: 10/01/18 05:45 10/02/18 10:07 Imaging Imaging: Impressions Myocardial Perfusion Scan Nuc Med 10/03/18 00:00 CONCLUSION: 1. Negative examination. Procedures Procedures: See above. Assessment and Plan (1) Atypical chest pain: Code(s): R07.89 - Other chest pain Status: Acute (2) Asthma with acute exacerbation: Code(s): J45.901 - Unspecified asthma with (acute) exacerbation Status: Acute Plan This is a 78-year-old female patient who presented to the ED with: Asthma and acute exacerbation. Improved. Chest pain, atypical suspect secondary to above. Resolved. -Patient presents with a 2-day complaint of worsening shortness of breath along with chest pain. -Serial EKGs and serial troponins have been ordered for ruling out ACS purposes. Serial troponins flat. -EKG reviewed showing sinus rhythm without any ST changes. Will continue cardiac telemetry. Monitor for any arrhythmias. -ACS ruled out with troponins and EKGs. cardiac lexiscan with no concerning results. -Chest x-ray reviewed showing no acute findings. -Continue on IV steroids. -Symbicort for wheezing. Continue duo nebs. -Continue Augmentin. -Supplemental O2 as needed, to keep sats >92%. -Supportive care. Acute hyponatremia. Improved. -Sodium 129 on presentation. Improved to 139. -Monitor labs in a.m. Hypokalemia. Improved. -Potassium 3.1 on presentation. Improved to 3.8. -Repletion as ordered. -Monitor BMP. Hypertension, chronic: Will continue home blood pressure medications. Monitor blood pressure trends. DVT prophylaxis: SCDs. Heparin. Discharge planning: Home today Progress Note: Quality VTE Deep Vein Thrombosis/Pulmonary Embolism Present on Admission: No _ (1) Asthma with acute exacerbation Qualifiers: Asthma persistence: unspecified Asthma severity: moderate Qualified Code(s) : J45.901 - Unspecified asthma with (acute) exacerbation
[2018-10-03 13:29] VITALS: O2SAT 95
--- NOTE | 2018-10-03 16:49 | TR ---
Date Performed: 10/03/2018 Time Performed: 09:09:30 DOCTOR: Joana Blas DRUG LIST: CLINICAL HISTORY: REASON FOR TEST: Angina REASON FOR ENDING: OBSERVATION: CONCLUSION: Lexiscan stress test was performed under standard four minute protocol. Radionuclid e was injected one minute prior to ending the test. No electrocardiographic abormalities were present to suggest ischemia. Nuclear imaging and interpretation are pending. COMMENTS: Lexiscan stress test was performed under standard four minute protocol. Radionuclide was injected one minute prior to ending the test. No electrocardiographic abormalities were present t o suggest ischemia. Nuclear imaging and interpretation are pending.
[2018-10-03 17:29] VITALS: BP 161/84; PULSE 88; RESP 21; TEMP 97.5
== END 2018-10-03 17:41 | disposition home or self-care (01) | DRG 202 ==
LOC: PHED 20:25 → PHEDA 20:25 → PH3 10-01 02:24
PROVIDERS: ADMIT Internal Medicine; ATTEND Internal Medicine
CPT/HCPCS: 71010; 71045; 78452; 80048; 80053; 82550; 82948; 82962; 83520; 83735; 83880; 84484; 85025; 85379; 90774; 93005; 93017; 94640; 94664; 94665; 96374; 99285; A9502; C8952; G0378; J1644; J2405; J2785; J2920; J2930; J7030; J7506; J7512; Q9969